=== PATIENT | female | born 1980 | race Caucasian/White ===

== ENCOUNTER 2016-08-22 23:19 | Emergency (ER) | payer OTHER ==
[2016-08-22] MEDS ORDERED: Cyclobenzaprine 10 MG TAB ONE (23:49)
[2016-08-22] MEDS ORDERED: HYDROcodone/Acetaminophen 5/325 mg Tablet ONE (23:49)
[2016-08-22] MEDS ORDERED: Acetaminophen 325 MG TAB ONE (23:49)
--- NOTE | 2016-08-23 00:06 | CT ---
EXAM: NONCONTRAST HEAD CT 08/22/16 HISTORY: Trauma. Posttraumatic pain. COMPARISON: None. TECHNIQUE: Noncontrast head CT is performed from skull base to skull vertex. Sagittal and coronal reformatted images are submitted for interpretation. FINDINGS: No parenchymal hemorrhage. No extra-axial hematoma. No midline shift. Basilar cisterns are patent. Brain volume, age appropriate. Cortical enriquez-white matter differentiation is preserved. The ventricles and sulci are patent and symmetric. Calvarium is intact. Adequate aeration of the sinuses and mastoid air cells. IMPRESSION: No acute intracranial posttraumatic sequela. POS: [facility]
--- NOTE | 2016-08-23 00:09 | CT ---
EXAM: CERVICAL SPINE CT WITHOUT CONTRAST 08/22/16 HISTORY: Trauma. Posttraumatic pain. COMPARISON: None. TECHNIQUE: Cervical spine CT is performed without IV or intrathecal contrast. Reformatted images are submitted for interpretation. FINDINGS: The visualized soft tissue neck structures, upper mediastinum, and lung apices are unremarkable. No significant central canal stenosis or foraminal narrowing. Limited evaluation by technique. Straightening of the normal cervical lordosis likely due to patient position, muscle spasm or cervic al collar. The current study is not tailored to assess for ligamentous injury. Vertebral body height is maintained. No fracture. Lateral masses of C1 and C2 as well as the intra-articular facets have appropriate alignment. IMPRESSION: 1. Straightening of the normal cervical lordosis as detailed above. Current study is not tailor ed to assess for ligamentous injury. 2. No cervical spine fracture. POS: [facility]
[2016-08-23] MEDS ORDERED: Ketorolac Tromethamine 30 MG/ML VIAL ONE (00:28)
== END 2016-08-23 00:39 | disposition home or self-care (01) ==
LOC: MADERS 23:19
DX: S16.1XXA Strain of muscle, fascia and tendon at neck level, initial encounter (principal); S00.83XA Contusion of other part of head, initial encounter; Z79.899 Other long term (current) drug therapy; V49.9XXA Car occupant (driver) (passenger) injured in unspecified traffic accident, initial encounter
CPT/HCPCS: 70450; 72125; 96374; G0390; J1885